=== PATIENT | male | born 1995 | race Caucasian/White ===

== ENCOUNTER 2018-03-07 00:16 | Emergency (ER) | payer BC ==
[~2018-03-07] VITALS: Ht 180.3 cm; Wt 90.9 kg
[2018-03-07 00:20] VITALS: BP 141/82; TEMP 98.3
[2018-03-07 00:51] LABS: COLLECTION METHOD CLEAN CATCH
[2018-03-07 00:56] LABS: MUCOUS Present /lpf; PH 6 (5-8); SQUAMOUS EPITHELIAL None Seen /hpf; URINE APPEARANCE Clear; URINE BACTERIA None Seen /hpf; URINE BILIRUBIN Negative (NEGATIVE); URINE BLOOD 1+ (NEGATIVE); URINE COLOR Yellow; URINE GLUCOSE Negative (NEGATIVE); URINE KETONE Trace (NEGATIVE); URINE LEUKOCYTE ESTERASE Negative (NEGATIVE); URINE NITRATE Negative (NEGATIVE); URINE PROTEIN(semi-quant) Negative (NEGATIVE); URINE UROBILINOGEN Negative (NEGATIVE)
[2018-03-07 01:05] LABS: TRICYCLIC ANTIDEPRESS URINE NEGATIVE
[2018-03-07 01:09] LABS: BASO % 0.3 % (0.0-2.0); EOS % 0.3 % (0-4.0); GRAN # 3.9 (1.4-6.5); GRAN % 63.6 % (42.2-75.2); HEMATOCRIT 39.3 % (42.0-52.0); HEMOGLOBIN 14.1 g/dl (13.5-18.0); LYMPH # 1.8 (1.2-3.4); LYMPH % 28.9 % (20.0-51.0); MEAN CELL VOLUME 87 fl (80.0-100.0); MEAN CORPUSCULAR HEMOGLOBIN 31 pg (27.0-31.0); MEAN CORPUSCULAR HGB CONC 36 g/dl (33.0-37.0); MEAN PLATELET VOLUME 8.3 fl (7.4-10.4); MONO # 0.4 (0.1-0.6); MONO % 6.6 % (1.7-9.3); PLATELET COUNT 181 K/mm3 (130-400); RED BLOOD COUNT 4.53 M/mm3 (4.20-5.60); REDCELL DISTRIBUTION WIDTH-CV 11.7 % (11.5-14.5)
[2018-03-07 01:19] LABS: ALANINE AMINOTRANSFERASE 39 U/L (21-72); ALBUMIN 4.2 gm/dL (3.5-5.0); ALKALINE PHOSPHATASE 60 U/L (50-136); ANION GAP 11 mmol/L (7-16); AST,SGOT 27 U/L (15-37); BILIRUBIN,TOTAL 0.7 mg/dL (0.0-1.0); BLOOD UREA NITROGEN 19 mg/dL (9-20); CALCIUM 8.8 mg/dL (8.4-10.2); CARBON DIOXIDE 27 mmol/L (22-30); CHLORIDE 102 mmol/L (98-107); GLUCOSE 113 mg/dL (74-106); POTASSIUM 3.6 mmol/L (3.4-5.0); SODIUM 140 mmol/L (137-145); TOTAL PROTEIN 6.7 gm/dL (6.4-8.2)
[2018-03-07 01:23] LABS: ACETAMINOPHEN < 10 ug/mL (10-30); ALCOHOL(ethanol),MEDICAL < 10 mg/dL; SALICYLATE < 1.0 mg/dL
[2018-03-07] MEDS ORDERED: ATARAX50 MG PO (03:06)
[2018-03-07] MEDS ORDERED: ATIVAN 0.50.5 MG/TAB PO (03:06)
[2018-03-07 03:10] VITALS: PULSE 79
== END 2018-03-07 03:26 | disposition home or self-care (01) ==
LOC: COL.ER 00:16
PROVIDERS: Physician Assistant
DX: R45.851 Suicidal ideations (principal); F41.0 Panic disorder [episodic paroxysmal anxiety]; F41.9 Anxiety disorder, unspecified

== ENCOUNTER 2018-03-15 18:11 | Emergency (ER) | payer BC ==
[~2018-03-15] VITALS: Ht 180.3 cm; Wt 90.9 kg
[~2018-03-15 18:11] MED LIST: ATARAX50 MG PO; ATIVAN 0.50.5 MG/TAB PO
[2018-03-15 18:18] VITALS: BP 145/85; PULSE 75; TEMP 97.7
== END 2018-03-15 19:16 | disposition home or self-care (01) ==
LOC: COL.ER 18:11
DX: F41.9 Anxiety disorder, unspecified (principal); F07.81 Postconcussional syndrome; F41.0 Panic disorder [episodic paroxysmal anxiety]; Z87.820 Personal history of traumatic brain injury